=== PATIENT | female | born 1955 | race Caucasian/White ===

== ENCOUNTER 2020-05-08 15:19 | Emergency (ER) | payer MEDICARE, OTHER ==
[2020-05-08 15:33] VITALS: TEMP 98.3
--- NOTE | 2020-05-08 16:31 | XR ---
Right forearm and right humerus HISTORY: Trauma and pain 3 views of the right forearm, 3 views of the right humerus Fracture dislocation of the right elbow is present. Dislocation is lateral, fracture likely present a t the distal humerus or there is associated soft tissue swelling. IMPRESSION: Elbow fracture or dislocation.
[2020-05-08] MEDS ORDERED: PROPOFOL 10 MG/ML 20 ML VIAL IV ONE (16:33)
--- NOTE | 2020-05-08 16:38 | ED ---
Fall HPI <Brent Fox - Last Filed: 05/08/20 17:21> - General Source: patient, EMS Mode of arrival: EMS <Janet Crockett - Last Filed: 05/09/20 10:22> - General Chief Complaint: Fall Stated Complaint: Rt wrist and elbow injury Time Seen by Provider: 05/08/20 15:29 - History of Present Illness Initial Comments: Patient is a 65-year-old female presenting to the emergency Department with complaints of right arm injury after fall. Patient states she was walking in her house when she felt like her right knee gave out and she fell mostly onto her right side onto her right arm. Patient states her right arm was facing other way and she pulled it towards her. She denies hitting her head, she denies pain anywhere else on her body. She states she has a torn ACL in a right knee and that's the reason I gave out. She denies loss of consciousness. She denies being on blood thinners. She has no further complaints at this time. Patient denies any previous surgeries or injuries to her right upper extremity. She did receive 50 of fentanyl in the EMS prior to arrival. Patient states that prior to this fall she accidentally sliced her left index finger with a knife. She states she is unsure of her tetanus vaccine and wants update that today. The bleeding has been controlled with a bandage. She has no further complaints. Upon arrival to the ER, her vitals are stable. (Janet Crockett) - Related Data Allergies Allergy/AdvReac Type Severity Reaction Status Date / Time atorvastatin [From Lipitor] AdvReac Unknown Verified 05/08/20 15:35 Review of Systems ROS Other: All systems not noted in ROS Statement are negative. <Brent Fox - Last Filed: 05/08/20 17:21> ROS Other: All systems not noted in ROS Statement are negative. <Janet Crockett - Last Filed: 05/09/20 10:22> ROS Statement: Those systems with pertinent positive or pertinent negative responses have been documented in the HPI. Past Medical History Past Medical History: Asthma, Hypertension History of Any Multi-Drug Resistant Organisms: None Reported Past Surgical History: Section, Hysterectomy Additional Past Surgical History / Comment(s): Gallbladder surgery. Past Psychological History: No Psychological Hx Reported Smoking Status: Never smoker Past Alcohol Use History: Occasional Past Drug Use History: None Reported <Janet Crockett Polly - Last Filed: 05/09/20 10:22> General Exam Limitations: physical limitation <Janet Crockett - Last Filed: 05/09/20 10:22> - General Exam Comments Initial Comments: GENERAL: Well-appearing, well-nourished and in no acute distress. HEAD: Atraumatic, normocephalic. EYES: Pupils equal round and reactive to light, extraocular movements intact, sclera anicteric, conjunctiva are normal. ENT: TMs normal, nares patent, oropharynx clear without exudates. Moist mucous membranes. NECK: Normal range of motion, supple without lymphadenopathy or JVD. LUNGS: Breath sounds clear to auscultation bilaterally and equal. No wheezes rales or rhonchi. HEART: Regular rate and rhythm without murmurs, rubs or gallops. ABDOMEN: Soft, nontender, normoactive bowel sounds. No guarding, no rebound. No masses appreciated. : Deferred EXTREMITIES: Patient's right upper extremity is in a sling from EMS. She has significant pain with palpation of the right elbow and there is an obvious deformity to the elbow. She is neurovascular intact. She is able to wiggle her fingers. She has no pain to palpation of the right shoulder, right upper arm, right wrist. No clubbing or cyanosis. NEUROLOGICAL: Normal speech, normal gait. PSYCH: Normal mood, normal affect. SKIN: Warm, Dry, normal turgor, no rashes. Patient has a small 0.5cm avulsion injury to the side of her left index finger that happened prior to her fall today. Bleeding is controlled. No sutures indicated. (Janet Crockett) Course Vital Signs 05/08/20 05/08/20 05/08/20 15:24 17:06 17:15 Temperature 98.3 F Pulse Rate 61 71 76 Respiratory 18 16 20 Rate Blood Pressure 134/83 123/101 142/80 O2 Sat by Pulse 98 99 97 Oximetry 05/08/20 05/08/20 05/08/20 17:20 17:35 17:50 Temperature Pulse Rate 98 77 75 Respiratory 16 18 18 Rate Blood Pressure 130/78 132/84 129/69 O2 Sat by Pulse 98 98 98 Oximetry 05/08/20 05/08/20 18:05 19:14 Temperature Pulse Rate 86 90 Respiratory 18 18 Rate Blood Pressure 134/91 124/83 O2 Sat by Pulse 97 97 Oximetry Procedures - Procedural Sedation Procedural Sedation Start Time: 17:09 Procedural Sedation Stop Time: 17:12 Indications: fracture/dislocation reduction ASA Class: II Mallampati Airway Score: 2 Preparation: environmental monitoring specialist applied, pulse oximeter, capnometry used, supplemental O2 applied, suction/airway equipment at bedside, IV secured IV Propofol Dose (mgs): 150 Complications: none Patient Tolerated Procedure: well <Brent Fox - Last Filed: 05/08/20 17:21> - Orthopedic Joint Reduction Joint #1 Consent Obtained: verbal consent Side: right Joint Reduction Location: elbow Analgesia: procedural sedation Technique Used: direct manipulation Post-Reduction Neuro Exam: intact Post-Reduction Vascular Exam: intact Post Reduction X-Ray Obtained: Yes (Improved alignment, loose body related to traumatic fracture) Post Reduction X-Ray Results: reduced Splint Applied: Yes Patient Tolerated Procedure: well - Orthopedic Splinting/Casting Injury #1 Side: right Upper Extremity Injury Location: elbow Upper Extremity Immobilizer: sling/shoulder immobilizer, posterior splint, Jayant wrap, synthetic pre-padded splint <Janet Crockett - Last Filed: 05/09/20 10:22> Medical Decision Making <Janet Crockett - Last Filed: 05/09/20 10:22> - Medical Decision Making Patient is a 65-year-old female presenting for for a right arm injury after a fall at her house today. There is no head injury, no loss of consciousness. Patient received 50 of unknown EMS prior to arrival. On exam patient has obvious deformity of the right elbow. X-rays revealed a lateral dislocation of the right elbow. Conscious sedation was performed, along with Dr. Fox, with the patient and successful elbow reduction was performed, confirmed with post reduction films. Patient remained neurovascular intact post reduction. Patient was placed in a posterior splint and a sling. I did discuss this case with Dr. Paddy Garay who recommended a CT of the elbow before discharge. CT the elbow was obtained and shows no acute comminuted intra-articular fracture of the lateral condyle of distal humerus with 3 fracture fragments. There was successful reduction of the joint. Patient's tetanus vaccine was updated today secondary to small avulsion injury on her left index finger that happened prior to this fall today. Patient is stable for discharge. She will follow up with orthopedics tomorrow morning. Patient is agreement with this plan of care. Return parameters were discussed with the patient she verbalized understanding. Case discussed with Dr. Fox. (Janet Crockett) Disposition <Brent Fox - Last Filed: 05/08/20 17:21> Is patient prescribed a controlled substance at d/c from ED?: No <Janet Crockett - Last Filed: 05/09/20 10:22> Clinical Impression: Fall, Closed lateral dislocation of right elbow, Laceration of left index finger Disposition: HOME SELF-CARE Condition: Stable Instructions (If sedation given, give patient instructions): Elbow Dislocation (ED), Moderate Sedation (ED) Additional Instructions: Please return to the Emergency Department if symptoms worsen or any other concerns. Keep splint in place as well as sling until follow-up with orthopedics. May take Motrin and/or Tylenol for pain relief. Call orthopedics tomorrow morning for an appointment. Referrals: Nonstaff,Physician [Primary Care Provider] - 1-2 days Paddy Syed DO [Doctor of Osteopathic Medicine] - 1-2 days
[2020-05-08] MEDS ORDERED: MORPHINE SULFATE 4 MG/ML SYRINGE IVP STA (16:41)
--- NOTE | 2020-05-08 17:46 | XR ---
EXAMINATION TYPE: XR elbow limited RT DATE OF EXAM: 05/08/2020 CLINICAL HISTORY: Dislocation TECHNIQUE: Frontal and lateral images of the right elbow are obtained. COMPARISON: Right humeral and forearm x-rays earlier today. FINDINGS: There is new overlying splint material seen which is noted to the radiograph sensitivity. Lateral and oblique projections show improved alignment after attempted reduction. Some bony projecti ons anteriorly likely reflect intra-articular loose bodies related to traumatic fracture. IMPRESSION: As above.
[2020-05-08] MEDS ORDERED: DIPH,PERTUS(ACELL)TETVAC-LF 0.5 ML VIAL IM ONE (17:54)
[2020-05-08 18:02] VITALS: RESP 18
[2020-05-08 19:20] VITALS: BP 124/83; PULSE 90
--- NOTE | 2020-05-08 19:23 | CT ---
EXAMINATION TYPE: CT elbow RT wo con DATE OF EXAM: 05/08/2020 COMPARISON: Same day x-rays. HISTORY: Fall injury with lateral dislocation. Right elbow pain. CT DLP: 1266 mGycm Automated exposure control for dose reduction was used. FINDINGS: There is acute comminuted intra-articular fracture through the lateral epicondyle distal humerus with 3 fracture fragments, largest measures 1.7 cm long axis anteriorly seen coronal image 23 and sagitta l image 33. Smaller fracture fragments are in the space between distal humerus and radial head on sag ittal and axial images. There is tiny curvilinear ossific body probable avulsion type fracture from the medial epicondyle cor onal image 19 corresponding to axial image 76. Visualized portion of proximal radius and ulna are intact. Joint spaces are maintained. Moderate soft tissue swelling and ill-defined hematoma over the medial aspect elbow joint noted. IMPRESSION: Distal humeral fractures as detailed above. Successful reduction noted.
== END 2020-05-08 19:27 | disposition home or self-care (01) ==
LOC: EC 15:19
DX: S53.144A Lateral dislocation of right ulnohumeral joint, initial encounter (principal); S61.211A Laceration without foreign body of left index finger without damage to nail, initial encounter; W26.0XXA Contact with knife, initial encounter; W18.30XA Fall on same level, unspecified, initial encounter; Y92.002 Bathroom of unspecified non-institutional (private) residence as the place of occurrence of the external cause; Z88.8 Allergy status to other drugs, medicaments and biological substances; Z23 Encounter for immunization
CPT/HCPCS: 99284 ×2; 96372 ×3; 90471; 24600; 73060; 73070; 73090; 73200; 90715; J2270; J2704